=== PATIENT | female | born 1995 | race Caucasian/White ===

== ENCOUNTER 2017-06-23 14:44 | Emergency (ER) | payer SELFPAY ==
[~2017-06-23] VITALS: Ht 165.1 cm; Wt 63.5 kg
[2017-06-23 15:27] VITALS: BP 94/50
[2017-06-23 17:04] VITALS: BP 109/58
== END 2017-06-23 17:57 | disposition home or self-care (01) ==
LOC: MED 14:44
DX: B35.9 Dermatophytosis, unspecified (principal)